=== PATIENT | female | born 2000 | race Caucasian/White ===

== ENCOUNTER 2021-09-25 15:17 | Observation (INO) | payer OTHER ==
[~2021-09-25 15:17] MED LIST: Iopamidol 300 61% 100 ML VIAL FS ONE
[2021-09-25] MEDS ORDERED: Morphine 4 MG/ML VIAL ONE (16:00)
[2021-09-25] MEDS ORDERED: Cefepime 2 GM VIAL ONE (16:01)
[2021-09-25] MEDS ORDERED: Ondansetron PF 4 MG/2 ML Vial ONE (16:01)
[2021-09-25 16:20] LABS: #Basophils 0.1 10x3/uL (0.0-0.2); #Eosinphils 0.3 10x3/uL (0.0-0.5); #Monocytes 0.7 10x3/uL (0.0-1.1); #Neutrophils 4.4 10x3/uL (1.5-8.4); %Basophils 0.7 % (0.0-2.0); %Eosinophils 3.3 % (0.0-6.0); %Lymphocytes 34.6 % (18.0-47.0); %Monocytes 8.1 % (0.0-10.0); %Neutrophils 53.1 % (40.0-75.0); Hemoglobin 12.9 g/dL (12.0-15.5); Mean Corpuscular HGB CONC 35.2 g/dL (32.0-36.0); Mean Corpuscular Hemoglobin 31.6 pg (27.0-33.0); Mean Corpuscular Volume 89.7 fl (81.6-98.3); Mean Platelet Volume 11.3 fl (7.4-10.4); Platelet Count 295 10x3/uL (150-450); RBC Distribution Width 12.2 % (11.5-14.5); Red Blood Cell (RBC) Count 4.08 10x6/uL (3.90-5.03); White Blood Cell (WBC) Count 8.3 10x3/uL (3.5-10.5)
[2021-09-25 16:24] LABS: BHCG - Serum Negative (NEGATIVE); Pregs Control Background? CLEAR/WHITE (CLR/WHITE); Pregs Control Bar Appear? YES (CONTROL BAR)
[2021-09-25 16:26] LABS: Bilirubin Neg (Negative); Blood, Urine Negative (Negative); Clarity Clear (Clear); Glucose, Urine (Dipstick) Normal (Negative); Ketone, Urine Negative (Negative); Leukocyte Negative (Negative); Nitrite Negative (Negative); Protein, Urine (Dipstick) Negative (Neg-Trace); Urobilinogen Normal mg/dL (Less than 2)
[2021-09-25 16:29] LABS: ALT (SGPT) 12 U/L (8-55); AST (SGOT) 17 U/L (5-34); Albumin 4.2 g/dL (3.5-5.0); Alkaline Phosphatase 74 U/L (40-100); Anion Gap 17 mmol/L (10-20); BUN (Urea Nitrogen) 11 mg/dL (7.0-18.7); Bilirubin, Total 0.7 mg/dL (0.2-1.2); Calc. Creatinine Clearance 0 mL/min (70-130); Calcium 9.7 mg/dL (7.8-10.44); Carbon Dioxide 17 mmol/L (22-29); Chloride 105 mmol/L (98-107); Globulin 2.9 g/dL (2.4-3.5); Glucose 127 mg/dL (70-105); Lipase 19 U/L (8-78); Protein, Total 7.1 g/dL (6.0-8.3); Sodium 135 mmol/L (136-145)
[2021-09-25] MEDS ORDERED: Piperacillin/Tazobactam 4.5 GM VIAL ONE (18:06)
[2021-09-25 19:10] LABS: Lactic Acid 0.5 mmol/L (0.5-2.2)
[2021-09-25] MEDS ORDERED: Acetaminophen 325 MG TAB PO PRN (21:36)
[2021-09-25] MEDS ORDERED: Acetaminophen 650 MG Suppository PR PRN (21:36)
[2021-09-25] MEDS ORDERED: HYDROcodone/Acetaminophen 5/325 mg Tablet PO PRN ×2 (21:36)
[2021-09-25] MEDS ORDERED: Ondansetron ODT 4 MG TAB PO PRN (21:36)
[2021-09-25] MEDS ORDERED: Ondansetron PF 4 MG/2 ML Vial IVP PRN (21:36)
[2021-09-25] MEDS ORDERED: Morphine 4 MG/ML VIAL SLOW IVP PRN (21:36)
[2021-09-25] MEDS ORDERED: Senokot S 8.6-50 MG TAB PO PRN (21:36)
[2021-09-25 21:38] VITALS: BMI 24.9
[2021-09-25] MEDS ORDERED: Famotidine 20 MG TAB PO SCH (21:45)
[2021-09-25] MEDS: Famotidine 20 MG TAB PO SCH (22:09)
[2021-09-25] MEDS: Sodium Chloride 0.9% 1,000 ML IV SCH (22:16)
[2021-09-25] MEDS ORDERED: Piperacillin/Tazobactam 4.5 GM in Sodium Chloride 0.9% 100 ML IVPB SCH (23:59)
[2021-09-26] MEDS: Piperacillin/Tazobactam 3.375 GM in Sodium Chloride 0.9% 100 ML IVPB SCH ×4 (00:48→23:45)
[2021-09-26 01:19] LABS: SARS-CoV-2 NAA Rapid Test Not Detected (NotDetected)
[2021-09-26 04:06] LABS: #Basophils 0.1 10x3/uL (0.0-0.2); #Eosinphils 0.3 10x3/uL (0.0-0.5); #Monocytes 0.7 10x3/uL (0.0-1.1); #Neutrophils 4.7 10x3/uL (1.5-8.4); %Basophils 0.6 % (0.0-2.0); %Eosinophils 3.6 % (0.0-6.0); %Lymphocytes 33.5 % (18.0-47.0); %Monocytes 8.3 % (0.0-10.0); %Neutrophils 53.8 % (40.0-75.0); Hemoglobin 11.1 g/dL (12.0-15.5); Mean Corpuscular HGB CONC 34.7 g/dL (32.0-36.0); Mean Corpuscular Hemoglobin 31.8 pg (27.0-33.0); Mean Corpuscular Volume 91.7 fl (81.6-98.3); Mean Platelet Volume 10.6 fl (7.4-10.4); Platelet Count 213 10x3/uL (150-450); RBC Distribution Width 12.6 % (11.5-14.5); Red Blood Cell (RBC) Count 3.49 10x6/uL (3.90-5.03); White Blood Cell (WBC) Count 8.8 10x3/uL (3.5-10.5)
[2021-09-26 04:44] LABS: Calcium 8.1 mg/dL (7.8-10.44)
[2021-09-26 04:47] LABS: Anion Gap 9 mmol/L (10-20); BUN (Urea Nitrogen) 10 mg/dL (7.0-18.7); Calc. Creatinine Clearance 133 mL/min (70-130); Carbon Dioxide 22 mmol/L (22-29); Chloride 113 mmol/L (98-107); Glucose 91 mg/dL (70-105); Sodium 139 mmol/L (136-145)
[2021-09-26] MEDS: Vancomycin HCl 1 GM in Sodium Chloride 0.9% 250 ML 250 ML IVPB SCH ×3 (06:49→20:55)
[2021-09-26] MEDS: Sodium Chloride 0.9% 1,000 ML IV SCH ×2 (18:25)
[2021-09-26] MEDS ORDERED: DULoxetine 30 MG CAP PO SCH (20:30)
[2021-09-26] MEDS ORDERED: Bupropion 150 MG XL TAB PO SCH (20:30)
[2021-09-26] MEDS: Famotidine 20 MG TAB PO SCH (21:01)
[2021-09-26 21:05] LABS: Vancomycin, Trough 15.4 ug/mL
[2021-09-27 04:53] LABS: Anion Gap 13 mmol/L (10-20); Calc. Creatinine Clearance 133 mL/min (70-130); Calcium 8.6 mg/dL (7.8-10.44); Carbon Dioxide 19 mmol/L (22-29); Chloride 112 mmol/L (98-107); Glucose 92 mg/dL (70-105); Potassium 3.8 mmol/L (3.5-5.1); Sodium 140 mmol/L (136-145)
[2021-09-27 04:55] LABS: BUN (Urea Nitrogen) 9 mg/dL (7.0-18.7)
[2021-09-27] MEDS: Sodium Chloride 0.9% 1,000 ML IV SCH (06:09)
[2021-09-27] MEDS: Vancomycin HCl 1 GM in Sodium Chloride 0.9% 250 ML 250 ML IVPB SCH (06:09)
[2021-09-27 08:29] VITALS: BP 102/54; TEMP 97.3
[2021-09-27] MEDS ORDERED: Polyethylene Glycol 3350 17 GM Packet PO SCH (09:00)
[2021-09-27] MEDS ORDERED: DULoxetine 30 MG CAP PO SCH (09:00)
[2021-09-27] MEDS ORDERED: Bupropion 150 MG XL TAB PO SCH (09:00)
[2021-09-27] MEDS: Piperacillin/Tazobactam 3.375 GM in Sodium Chloride 0.9% 100 ML IVPB SCH (09:50)
[2021-09-27] MEDS: Famotidine 20 MG TAB PO SCH (10:31)
== END 2021-09-27 11:17 | disposition home or self-care (01) ==
LOC: CSHERS 15:17 → INTOOBSV 21:24 → CSHTELE 21:24
PROVIDERS: ADMIT Emergency Medicine; ATTEND Internal Medicine
DX: R10.31 Right lower quadrant pain (principal); R65.10 Systemic inflammatory response syndrome (SIRS) of non-infectious origin without acute organ dysfunction; I95.9 Hypotension, unspecified; E87.2 Acidosis; F41.9 Anxiety disorder, unspecified; R00.0 Tachycardia, unspecified; D64.9 Anemia, unspecified; K83.8 Other specified diseases of biliary tract; F17.290 Nicotine dependence, other tobacco product, uncomplicated; Z20.822 Contact with and (suspected) exposure to COVID-19
CPT/HCPCS: 36415; 74177; 76856; 80048; 80053; 80202; 81003; 83605; 83690; 84703; 85025; 87040; 93005; 94760; 96374; 96375; 96376; G0378; J0692; J2270; J2405; J2543; J3370; J3490; J7050; Q9967; U0002